=== PATIENT | male | born 1975 | race African-American/Black ===

== ENCOUNTER 2017-01-13 01:00 | Emergency (ER) | payer SELFPAY ==
[~2017-01-13] VITALS: Ht 195.6 cm; Wt 140.0 kg
[~2017-01-13 01:00] MED LIST: IBUP-1636 PO
[2017-01-13 01:53] LABS: CLARITY URINE CLEAR (CLEAR); COLOR URINE YELLOW (YELLOW); GLUCOSE URINE NEGATIVE (NEGATIVE); KETONES URINE NEGATIVE (NEGATIVE); LEUKOCYTE ESTERASE URINE NEGATIVE (NEGATIVE); NITRITE URINE NEGATIVE (NEGATIVE); OCCULT BLOOD URINE NEGATIVE (NEGATIVE); PROTEIN URINE NEGATIVE (NEGATIVE); SPECIFIC GRAVITY URINE 1.023 (1.005-1.030); UROBILINOGEN URINE 0.2 E.U./dL (0.2-1.0)
[2017-01-13 03:01] VITALS: BP 146/108
== END 2017-01-13 03:08 | disposition home or self-care (01) ==
LOC: ER 01:00
DX: E11.9 Type 2 diabetes mellitus without complications (principal); Z87.891 Personal history of nicotine dependence
CPT/HCPCS: 81003; 82962; 99283